=== PATIENT | male | born 1965 | race Caucasian/White ===

== ENCOUNTER 2017-08-07 17:18 | Emergency (ER) | payer MEDICARE ==
[2017-08-07] MEDS ORDERED: Adacel (T-DAP) 0.5 ML VIAL ONE (17:22)
[2017-08-07] MEDS ORDERED: Morphine 4 MG/ML VIAL ONE (17:25)
[2017-08-07] MEDS ORDERED: Silver Sulfadiazine 1% Cream 50 GM JAR ONE (17:25)
== END 2017-08-07 17:53 | disposition home or self-care (01) ==
LOC: ERS 17:18
DX: T23.241A Burn of second degree of multiple right fingers (nail), including thumb, initial encounter (principal); I10 Essential (primary) hypertension; B20 Human immunodeficiency virus [HIV] disease; F17.210 Nicotine dependence, cigarettes, uncomplicated; Z23 Encounter for immunization
CPT/HCPCS: 16020; 90471; 90715; 96372; J2270

== ENCOUNTER 2019-03-06 07:17 | Emergency (ER) | payer MEDICARE ==
--- NOTE | 2019-03-10 11:04 | EKG ---
Test Reason : Blood Pressure : / mmHG Vent. Rate : 065 BPM Atrial Rate : 065 BPM P-R Int : 174 ms QRS Dur : 106 ms QT Int : 418 ms P-R-T Axes : 034 -55 034 degrees QTc Int : 434 ms Poor data quality, interpretation may be adversely affected Normal sinus rhythm Left anterior fascicular block Cannot rule out Anterior infarct , age undetermined Abnormal ECG Confirmed by SOLANGE JONAS ([id number]), industrial editor RAYMOND HOLLINS ([id number]) on 03/10/2019 11:03:24 AM Referred By: Confirmed By:SOLANGE JONAS
== END 2019-03-06 07:47 | disposition home or self-care (01) ==
LOC: ERS 07:17
DX: S46.812A Strain of other muscles, fascia and tendons at shoulder and upper arm level, left arm, initial encounter (principal); Z86.73 Personal history of transient ischemic attack (TIA), and cerebral infarction without residual deficits; B20 Human immunodeficiency virus [HIV] disease; X50.9XXA Other and unspecified overexertion or strenuous movements or postures, initial encounter
CPT/HCPCS: 93005